=== PATIENT | male | born 1935 | race American Indian/Alaskan Native ===

== ENCOUNTER 2016-09-14 11:41 | Inpatient (IN) | payer MEDICARE, OTHER ==
[2016-09-14] MEDS ORDERED: DUONEB 0.5 MG-3 MG/3 ML SOLN IH ONE ×2 (11:52→13:38)
[2016-09-14 12:28] LABS: Basophils % (Auto) 0.6 % (0.0-1.8); Hematocrit 31.4 % (35.5-45.6); Hemoglobin 10.4 gm/dl (11.8-15.2); Mean Corpuscular HGB Conc 33 % (32-34); Mean Corpuscular Hemoglobin 31 pg (28-32); Mean Corpuscular Volume 95 fl (84-94); Platelet Count 197 K/mm3 (140-440); Red Blood Count 3.31 M/mm3 (3.65-5.03); Red Cell Distribution Width 13.7 % (13.2-15.2); White Blood Count 9.2 K/mm3 (4.5-11.0)
--- NOTE | 2016-09-14 12:33 | XRay Report ---
PORTABLE CHEST INDICATION: Difficulty breathing. COMPARISON: 10/07/2013 FINDINGS: Portable, frontal chest radiograph again demonstrates a normal heart size, post CABG changes, slight aortic knob calcifications, slightly prominent pulmonary arteries and chronic bilateral changes, including mid to lower lung calcified pleural plaques and mild scarring with chronic blunting of the left lateral costophrenic angle. Diaphragmatic calcifications may also again be noted, more so on the left. EKG leads. Demineralized bones. CONCLUSION: No acute chest process or significant interval change in various chronic findings, as detailed above. Thank you for the opportunity to participate in this patient's care.
[2016-09-14 12:51] LABS: Anion Gap 14 mmol/L; BUN/Creatinine Ratio 16.92; Blood Urea Nitrogen 22 mg/dL (9-20); Carbon Dioxide 40 mmol/L (22-30); Chloride 85.8 mmol/L (98-107); Glucose 125 mg/dL (75-100); Sodium 137 mmol/L (137-145)
[2016-09-14 13:18] LABS: Potassium 2.7 mmol/L (3.6-5.0)
[2016-09-14] MEDS ORDERED: K-DUR PO ONE (13:19)
--- NOTE | 2016-09-14 13:19 | Emergency Department Report ---
ED General Adult HPI - General Chief complaint: Dyspnea/Respdistress Stated complaint: RICARDO Time Seen by Provider: 09/14/16 13:17 Source: patient, EMS Mode of arrival: Stretcher Limitations: No Limitations - History of Present Illness Initial comments: This is a patient with end-stage COPD. He was last admitted to this facility in 2013. He is on home O2, has a home nebulizer and utilizes nocturnal C Pap or BiPAP. He arrives with a family member who provides him care at home. The patient states that his emphysema flared up this a.m. He denies chest pain he denies fever chills or cough. He is not the best historian but appears to be able to answer appropriately. In addition the family members does not contradict any of his answers. His ability to give a history is however limited. Patient was found to have chronic pleural plaques upon admission in 2013. A CT of the chest was done at that time. No neoplastic lesions were found. The patient was given nebulized albuterol and Solu-Medrol and route to the hospital per EMS. -: Gradual, hour(s) Consistency: now resolved (patient states his wheezing has improved. ) - Related Data Home Medications Medication Instructions Recorded Confirmed Last Taken Aspirin [Aspirin TAB] 325 mg PO DAILY 10/07/13 10/07/13 10/07/13 10:00 Budesoni/Formotero 160-4.5(Nf) 10.2 gm IH BID 10/07/13 10/07/13 Unknown [Symbicort 160-4.5 (Nf)] Cyanocobalamin (Vitamin B-12) 1,000 mcg PO DAILY 10/07/13 10/07/13 Unknown [Vitamin B-12] Folic Acid 1 mg PO DAILY 10/07/13 10/07/13 Unknown Furosemide [Furosemide ORAL LIQ] 40 mg PO DAILY 10/07/13 10/07/13 10/07/13 10:00 Lisinopril [Zestril TAB] 5 mg PO QDAY 10/07/13 10/07/13 Unknown Metoprolol [Lopressor TAB] 25 mg PO BID 10/07/13 10/07/13 10/06/13 21:00 Potassium Chloride 10 Meq [KCl 10 meq PO DAILY 10/07/13 10/07/13 Unknown 10Meq/100Ml] Ranitidine HCl [Ranitidine 150mg 150 mg PO BID 10/07/13 10/07/13 Unknown Cap] Rosuvastatin Calcium [Crestor] 40 mg PO QHS 10/07/13 10/07/13 Unknown Thiamine [Vitamin B-1] 100 mg PO DAILY 10/07/13 10/07/13 10/07/13 10:00 Previous Rx's Medication Instructions Recorded Last Taken Type Levofloxacin [Levaquin TAB] 500 mg PO Q24HR #7 tablet 10/09/13 Unknown Rx predniSONE [Deltasone] 20 mg PO QDAY #20 tab 10/09/13 Unknown Rx Allergies Allergy/AdvReac Type Severity Reaction Status Date / Time Penicillins Allergy Hives Verified 10/07/13 11:38 ED Review of Systems ROS: Stated complaint: RICARDO Other details as noted in HPI Comment: Unobtainable due to pts medical conditions ED Past Medical Hx - Past Medical History Previous Medical History?: Yes Hx Hypertension: Yes Hx Diabetes: Yes Hx COPD: Yes - Surgical History Additional Surgical History: Triple bypass - Social History Smoking Status: Former Smoker Substance Use Type: None - Medications Home Medications: Home Medications Medication Instructions Recorded Confirmed Last Taken Type Aspirin [Aspirin TAB] 325 mg PO DAILY 10/07/13 10/07/13 10/07/13 10:00 History Budesoni/Formotero 160-4.5(Nf) 10.2 gm IH BID 10/07/13 10/07/13 Unknown History [Symbicort 160-4.5 (Nf)] Cyanocobalamin (Vitamin B-12) 1,000 mcg PO DAILY 10/07/13 10/07/13 Unknown History [Vitamin B-12] Folic Acid 1 mg PO DAILY 10/07/13 10/07/13 Unknown History Furosemide [Furosemide ORAL LIQ] 40 mg PO DAILY 10/07/13 10/07/13 10/07/13 10: 00 History Lisinopril [Zestril TAB] 5 mg PO QDAY 10/07/13 10/07/13 Unknown History Metoprolol [Lopressor TAB] 25 mg PO BID 10/07/13 10/07/13 10/06/13 21:00 History Potassium Chloride 10 Meq [KCl 10 meq PO DAILY 10/07/13 10/07/13 Unknown History 10Meq/100Ml] Ranitidine HCl [Ranitidine 150mg 150 mg PO BID 10/07/13 10/07/13 Unknown History Cap] Rosuvastatin Calcium [Crestor] 40 mg PO QHS 10/07/13 10/07/13 Unknown History Thiamine [Vitamin B-1] 100 mg PO DAILY 10/07/13 10/07/13 10/07/13 10:00 History Levofloxacin [Levaquin TAB] 500 mg PO Q24HR #7 tablet 10/09/13 Unknown Rx predniSONE [Deltasone] 20 mg PO QDAY #20 tab 10/09/13 Unknown Rx ED Physical Exam - General Limitations: No Limitations General appearance: alert, in no apparent distress - Head Head exam: Present: atraumatic, normocephalic - Eye Eye exam: Present: normal appearance. Absent: scleral icterus - ENT ENT exam: Present: mucous membranes moist - Neck Neck exam: Present: normal inspection - Respiratory Respiratory exam: Present: wheezes, decreased breath sounds. Absent: respiratory distress - Cardiovascular Cardiovascular Exam: Present: regular rate, normal rhythm. Absent: systolic murmur, diastolic murmur, rubs, gallop - GI/Abdominal GI/Abdominal exam: Present: soft, normal bowel sounds. Absent: distended, tenderness, guarding, rebound, rigid - Rectal Rectal exam: Present: deferred - Extremities Exam Extremities exam: Present: normal inspection - Back Exam Back exam: Present: normal inspection - Neurological Exam Neurological exam: Present: alert, oriented X3, CN II-XII intact, other (some tremor/fine myoclonus occasionally noted). Absent: motor sensory deficit - Psychiatric Psychiatric exam: Present: normal mood, flat affect - Skin Skin exam: Present: warm, dry, intact, normal color. Absent: rash ED Course Vital Signs 09/14/16 09/14/16 09/14/16 11:48 11:49 11:50 Temperature Pulse Rate 102 H 100 H 93 H Pulse Rate [ Anterior Bilateral Throughout] Respiratory 19 18 18 Rate Respiratory Rate [Anterior Bilateral Throughout] Blood Pressure O2 Sat by Pulse Oximetry 09/14/16 09/14/16 09/14/16 11:51 11:52 11:54 Temperature Pulse Rate 95 H 93 H 96 H Pulse Rate [ Anterior Bilateral Throughout] Respiratory 16 19 13 Rate Respiratory Rate [Anterior Bilateral Throughout] Blood Pressure 120/56 120/56 120/56 O2 Sat by Pulse Oximetry 09/14/16 09/14/16 09/14/16 11:55 11:56 11:58 Temperature 97.5 F L Pulse Rate 97 H 97 H 89 Pulse Rate [ 88 Anterior Bilateral Throughout] Respiratory 20 17 15 Rate Respiratory 17 Rate [Anterior Bilateral Throughout] Blood Pressure 120/56 120/56 120/56 O2 Sat by Pulse 100 Oximetry 09/14/16 09/14/16 09/14/16 12:00 12:02 12:04 Temperature Pulse Rate 96 H 93 H 90 Pulse Rate [ Anterior Bilateral Throughout] Respiratory 20 19 19 Rate Respiratory Rate [Anterior Bilateral Throughout] Blood Pressure 129/60 129/60 129/60 O2 Sat by Pulse 99 98 99 Oximetry 09/14/16 09/14/16 09/14/16 12:06 12:08 12:10 Temperature Pulse Rate 103 H 87 93 H Pulse Rate [ Anterior Bilateral Throughout] Respiratory 16 17 20 Rate Respiratory Rate [Anterior Bilateral Throughout] Blood Pressure 129/60 129/60 129/60 O2 Sat by Pulse 99 98 88 Oximetry 09/14/16 09/14/16 09/14/16 12:12 12:14 12:16 Temperature Pulse Rate 101 H 110 H 98 H Pulse Rate [ Anterior Bilateral Throughout] Respiratory 23 15 20 Rate Respiratory Rate [Anterior Bilateral Throughout] Blood Pressure 129/60 129/60 129/60 O2 Sat by Pulse 93 100 73 L Oximetry 09/14/16 09/14/16 09/14/16 12:18 12:20 12:22 Temperature Pulse Rate 101 H 98 H 91 H Pulse Rate [ 96 H Anterior Bilateral Throughout] Respiratory 20 18 19 Rate Respiratory 22 Rate [Anterior Bilateral Throughout] Blood Pressure 129/60 129/60 129/60 O2 Sat by Pulse 91 90 82 L Oximetry 09/14/16 09/14/16 09/14/16 12:24 12:26 12:28 Temperature Pulse Rate 93 H 97 H 103 H Pulse Rate [ Anterior Bilateral Throughout] Respiratory 19 22 21 Rate Respiratory Rate [Anterior Bilateral Throughout] Blood Pressure 129/60 129/60 129/60 O2 Sat by Pulse 81 L 88 100 Oximetry 09/14/16 09/14/16 09/14/16 12:30 12:32 12:34 Temperature Pulse Rate 96 H 91 H 97 H Pulse Rate [ Anterior Bilateral Throughout] Respiratory 30 H 14 17 Rate Respiratory Rate [Anterior Bilateral Throughout] Blood Pressure 129/60 129/60 129/60 O2 Sat by Pulse 91 100 100 Oximetry 09/14/16 09/14/16 09/14/16 12:36 12:38 12:40 Temperature Pulse Rate 100 H 102 H 98 H Pulse Rate [ Anterior Bilateral Throughout] Respiratory 19 19 15 Rate Respiratory Rate [Anterior Bilateral Throughout] Blood Pressure 129/60 129/60 129/60 O2 Sat by Pulse 100 80 L Oximetry 09/14/16 09/14/16 09/14/16 12:42 12:44 12:46 Temperature Pulse Rate 101 H 99 H 96 H Pulse Rate [ Anterior Bilateral Throughout] Respiratory 19 20 19 Rate Respiratory Rate [Anterior Bilateral Throughout] Blood Pressure 129/60 129/60 129/60 O2 Sat by Pulse 100 Oximetry 09/14/16 09/14/16 09/14/16 12:48 12:50 12:52 Temperature Pulse Rate 87 91 H 87 Pulse Rate [ Anterior Bilateral Throughout] Respiratory 19 20 19 Rate Respiratory Rate [Anterior Bilateral Throughout] Blood Pressure 129/60 129/60 129/60 O2 Sat by Pulse 97 96 100 Oximetry 09/14/16 09/14/16 09/14/16 12:54 12:56 12:58 Temperature Pulse Rate 87 81 93 H Pulse Rate [ Anterior Bilateral Throughout] Respiratory 14 18 12 Rate Respiratory Rate [Anterior Bilateral Throughout] Blood Pressure 129/60 129/60 129/60 O2 Sat by Pulse 94 Oximetry 09/14/16 09/14/16 09/14/16 13:00 13:02 13:04 Temperature Pulse Rate 91 H 86 91 H Pulse Rate [ Anterior Bilateral Throughout] Respiratory 18 16 18 Rate Respiratory Rate [Anterior Bilateral Throughout] Blood Pressure 111/53 111/53 111/53 O2 Sat by Pulse 98 Oximetry 09/14/16 09/14/16 09/14/16 13:06 13:08 13:10 Temperature Pulse Rate 97 H 92 H 92 H Pulse Rate [ Anterior Bilateral Throughout] Respiratory 18 18 17 Rate Respiratory Rate [Anterior Bilateral Throughout] Blood Pressure 111/53 111/53 111/53 O2 Sat by Pulse 100 100 100 Oximetry 09/14/16 09/14/16 09/14/16 13:12 13:14 13:16 Temperature Pulse Rate 92 H 89 105 H Pulse Rate [ Anterior Bilateral Throughout] Respiratory 16 19 17 Rate Respiratory Rate [Anterior Bilateral Throughout] Blood Pressure 111/53 111/53 111/53 O2 Sat by Pulse 100 95 100 Oximetry 09/14/16 09/14/16 13:29 13:56 Temperature Pulse Rate Pulse Rate [ 63 Anterior Bilateral Throughout] Respiratory 20 Rate Respiratory 18 Rate [Anterior Bilateral Throughout] Blood Pressure O2 Sat by Pulse 100 Oximetry - Reevaluation(s) Reevaluation #1: An arterial blood gas showed a pH of 7.52 PCO2 of 57 PO2 111 with a bicarbonate of 47.5. This would indicate the patient does have some degree of metabolic colic alkalosis in addition to his chronic respiratory acidosis. It is a mixed picture. I think the patient does have some "contraction alkalosis". He was given IV fluids. 09/14/16 14:16 Reevaluation #2: The patient was discussed with the hospitalist, Dr. Barton. He requested I place bridging orders. The patient will be admitted to telemetry. IV fluids. Supplemental potassium. I've advised Dr. Barton that the patient needs CPap or BiPAP at night. I will enter another dose of potassium chloride by mouth. 09/14/16 14:19 ED Medical Decision Making - Lab Data Result diagrams: 09/14/16 12:17 09/14/16 12:17 Laboratory Results - last 24 hr 09/14/16 09/14/16 12:17 12:17 WBC 9.2 RBC 3.31 L Hgb 10.4 L Hct 31.4 L MCV 95 H MCH 31 MCHC 33 RDW 13.7 Plt Count 197 Lymph % (Auto) 16.9 [place] % (Auto) 11.4 H Eos % (Auto) 5.0 H Baso % (Auto) 0.6 Lymph # 1.6 [place] # 1.0 H Eos # 0.5 H Baso # 0.1 Seg Neutrophils % 66.1 Seg Neutrophils # 6.1 Sodium 137 Potassium 2.7 L* Chloride 85.8 L Carbon Dioxide 40 H Anion Gap 14 BUN 22 H Creatinine 1.3 Estimated GFR > 60 BUN/Creatinine Ratio 16.92 Glucose 125 H Calcium 9.0 Troponin T < 0.010 - EKG Data -: EKG Interpreted by Me EKG shows normal: sinus rhythm - EKG Data Interpretation: other (pulmonary disease pattern and nonspecific ST-T wave changes. Right atrial and atrial ectopy.) - Radiology Data Radiology results: report reviewed interpreted by me: Chest x-ray shows no interval change with chronic pulmonary plaques and COPD noted. Critical Care Time: Yes Critical care time in (mins) excluding proc time.: 40 Critical care attestation.: If time is entered above; I have spent that time in minutes in the direct care of this critically ill patient, excluding procedure time. ED Disposition Clinical Impression: Chronic hypoxemic respiratory failure, Metabolic alkalosis, Hypokalemia Disposition: OP ADMITTED IP TO THIS HOSP Is pt being admited?: Yes Does the pt Need Aspirin: Yes Condition: Stable Referrals: PRIMARY CARE,MD [Primary Care Provider] - 3-5 Days Time of Disposition: 14:18
--- NOTE | 2016-09-14 13:34 | Admit Criteria Form ---
Admission Criteria Documentation: PULMONARY DISEASE GRG Clinical Indications for Admission to Inpatient Care ( Place 'X' for any and all applicable criteria): Hospital admission is needed for appropriate care of the patient because of ANY ONE of the following(1): [ ]I. Impending or actual respiratory arrest ( Use Respiratory Failure Criteria for severe respiratory disease and long-term mechanical ventilation patients) (4) [ ]II. Severe airflow or ventilation abnormalities (not responsive to emergency and observation care treatment as appropriate) as indicated by ANY ONE of the following(5)(6)(7)(8) : [ ]a) PCO2 > 42 mm Hg (5.6 kPa) and pH < 7.35 (new) [ ]b) Documented PCO2 increase > 5 mm Hg (0.7 kPa) from disease baseline [ ]c) Airflow measurements[A] < 60% of previous best or predicted ( e.g., PEF <300 L/minute) despite intensive emergent treatment[B] [ ]d) Required respiratory treatments that are performable only in acute inpatient setting [ ]III. Severe respiratory findings (not responsive to emergency and observation care treatment as appropriate) including ANY ONE of the following(5)(8)(9): [ ]a) Respiratory distress as indicated by ALL of the following(5)(10): [ ]i) Patient with ANY ONE of the following: [ ]1) Dyspnea (difficulty breathing) [ ]2) Abnormal breathing pattern (eg, chest retractions) [ ]3) Tachypnea [ ]4) Other evidence of difficulty breathing [ ]ii) Evidence of respiratory compromise indicated by ANY ONE of the following: [ ]1) Hypoxemia [ ]2) Altered mental status [ ]3) Other evidence of respiratory compromise (eg, pulmonary edema on chest x-ray) [ ]b) Stridor [ ]c) Gross hemoptysis(11) [ ]d) Acute cyanosis [ ]IV. High-risk pulmonary infection as indicated by ANY ONE of the following( 19)(20)(21)(22): [ ]a) Temperature less than 95 degrees F(35 degrees C) or greater than 103.1 degrees F(39.5 degrees C) [ ]b) Hemodynamic instability that remains after emergency or observation level care (as appropriate) [ ]c) Immunocompromised patient (eg, AIDS, post transplant, neutropenic) [ ]d) History of severe COPD [ ]e) History of severely symptomatic congestive heart failure [ ]f) Other high-risk comorbidity (eg, poorly controlled diabetes, cirrhosis, chronic renal insufficiency) [ ]g) Hypoxemia (new) [ ]h) Outpatient, observation, or recovery facility therapy has failed, is not appropriate, or is not feasible [ ]V. Severe atelectasis or lung collapse(15)(16) [ ]. Tuberculosis requiring inpatient treatment as indicated by ANY ONE of the following(17)(18): [ ]a) New positive acid-fast bacilli sputum smear [ ]b) Positive acid-fast bacilli smear (under current treatment), with ANY ONE of the following: [ ]i) Unexposed household contacts [ ]ii) Infants or immunosuppressed household contacts [ ]iii) Patient unable or unwilling to avoid exposing others [ ]iv) Severe immunocompromised patient (eg, AIDS, post transplant, neutropenic) [ ]VII. Empyema or lung abscess(13)(14) [ ]VIII. Severe pulmonary arterial hypertension or pulmonary vascular disease requiring inpatient care indicated by ANY ONE of the following(24)(25): [ ]a) Initiation or change of vasodilators (IV, subcutaneous, or inhaled) or other vasoactive medications needed [ ]b) IV anticoagulation needed (eg, immediate anticoagulation necessary, alternatives not appropriate) [ ]c) Arterial or pulmonary artery catheter monitoring needed due to infusion or other treatment [ ]IX. Chronic lung disease with severe deterioration (not responsive to emergency and observation care treatment as appropriate) as indicated by ANY ONE of the following (6)(12): [ ]a) SaO2 5% below baseline in patient with chronic hypoxemia [ ]b) New requirement for supplemental oxygen to keep SaO2 at baseline or acceptable level [ ]c) Required supplemental oxygen performable only in acute inpatient setting [ ]d) Severe airflow or ventilation abnormalities [ ]e) Rapid rate of exacerbation onset [ ]f) Previously mobile patient unable to walk between rooms [ ]g) Inability to eat or sleep due to dyspnea [ ]h) Altered mental status [ ]X. Cystic fibrosis with severe deterioration as indicated by ANY ONE of the following(26)(27): [ ]a) Severe exacerbation that does not respond to intensified home therapy [ ]b) Pneumonia [ ]c) Hemoptysis [ ]d) Atelectasis [ ]e) Pneumothorax [ ]f) Respiratory failure [ ]g) Severe exacerbation with patient unable to perform prescribed treatments at home [ ]XI. Severe right heart failure as indicated by ANY ONE of the following(24) (25): [ ]a) Increasing organ failure (eg, liver congestion with significant and worsening or new elevation of transaminases) [ ]b) Anasarca [ ]c) Angina that requires inpatient care (eg, not treatable in emergency or observation level of care) [ ]d) Respiratory distress [ ]e) Syncope [ ]f) SBP < 90 mm Hg (new) [ ]XII. Injury requiring inpatient care (medical) as indicated by ANY ONE of the following(28): [ ]a) Significant inhalation injury (eg, smoke inhalation, other toxic inhalation) (29)(30)(31) [ ]b) Airway obstruction that remains or is unstable after emergency or observation level care(32) [ ]c) Severe pain requiring acute inpatient management [ ]d) Lung contusion [ ]e) Bronchial tree injury [ ]f) Air or fat emboli(33) [ ]g) Other injury not treatable in emergency or observation level care (eg, hemothorax) (34) [ ]XIII. Pulmonary hemorrhage or significant hemoptysis(11)(35)(36) [ ]XIV. Inpatient palliative care needed[C](37)(38)(39)(40) [ ]XV. Complications of lung transplant (eg, rejection, failure, respiratory infection) (23) [ ]XVI. Pulmonary Disease and ANY ONE of the following: [ ]a) General Admission Criteria [ ]b) Pediatric General Admission Criteria The original [facility] content created by [facility] has been revised. The portions of the content which have been revised are identified through the use of italic text or in bold, and [facility] has neither reviewed nor approved the modified material. All other unmodified content is copyright [facility]. Please see references footnoted in the original [facility] edition 2016
[2016-09-14] MEDS ORDERED: NACL 0.9% 1000 ML 1,000 ML IV ONE (13:38)
[2016-09-14] MEDS ORDERED: BABY ASPIRIN PO ONE (14:20)
[2016-09-14 14:23] LABS: ISTAT Base Excess 25; ISTAT HCO3 47.4; ISTAT PCO2 57.9 (35-45); ISTAT PH 7.521 (7.35-7.45); ISTAT PO2 111 (80-105); ISTAT SO2 99; ISTAT TCO2 49
[2016-09-14] MEDS ORDERED: TRIPLE ANTIBIOTIC TP ONE (14:24)
[2016-09-14] MEDS: DUONEB 0.5 MG-3 MG/3 ML SOLN IH SCH ×2 (17:35→20:16)
[2016-09-14] MEDS ORDERED: PROVENTIL IH PRN (22:32)
--- NOTE | 2016-09-15 01:58 | Event Note ---
Date: 09/14/16 See H/p for 09/14/16 in reports
[2016-09-15] MEDS ORDERED: FORMOTEROL IH SCH (02:00)
[2016-09-15] MEDS ORDERED: BUDESONIDE IH SCH (02:00)
[2016-09-15] MEDS ORDERED: DUONEB 0.5 MG-3 MG/3 ML SOLN IH SCH (02:00)
[2016-09-15] MEDS ORDERED: DUONEB 0.5 MG-3 MG/3 ML SOLN IH PRN (02:01)
[2016-09-15] MEDS ORDERED: K-DUR PO ONE (02:19)
[2016-09-15] MEDS ORDERED: PROVENTIL IH PRN (02:29)
[2016-09-15 02:41] LABS: Basophils % (Auto) 0.3 % (0.0-1.8); Eosinophils % (Auto) 3.5 % (0.0-4.3); Hemoglobin 9.2 gm/dl (11.8-15.2); Mean Corpuscular HGB Conc 33 % (32-34); Mean Corpuscular Hemoglobin 31 pg (28-32); Mean Corpuscular Volume 94 fl (84-94); Platelet Count 177 K/mm3 (140-440); Red Blood Count 2.98 M/mm3 (3.65-5.03); Red Cell Distribution Width 13.4 % (13.2-15.2); White Blood Count 8.3 K/mm3 (4.5-11.0)
[2016-09-15] MEDS: DUONEB 0.5 MG-3 MG/3 ML SOLN IH SCH ×3 (02:48→13:39)
[2016-09-15] MEDS: KCL 10MEQ/100ML 10 MEQ/100 ML BAG IV SCH ×4 (03:04→10:09)
--- NOTE | 2016-09-15 04:07 | History and Physical Report ---
CHIEF COMPLAINT: Increasing respiratory distress for last 2 days. HISTORY OF PRESENT ILLNESS: An 81-year-old male with end-stage COPD, comes in for increasing shortness of breath. The patient is on home oxygen and CPAP machine. At this point, ____. The patient has been having increasing shortness of breath more so since a.m. today. Cough productive of yellow sputum. No fever, no chills. Very short of breath. The last admission for the patient was in 2013 ____. PAST MEDICAL HISTORY: As mentioned: 1. COPD. 2. Diabetes. 3. Hypertension. 4. Gastroesophageal reflux disease. CURRENT MEDICATIONS: 1. Aspirin 325 mg daily. 2. Symbicort 160/4.5 b.i.d. 3. Folic acid 1 mg p.o. daily. 4. Lasix 40 mg p.o. daily. 5. Lisinopril 5 mg p.o. daily. 6. Metoprolol 25 mg p.o. b.i.d. 7. Potassium 10 mEq p.o. daily. 8. Ranitidine 150 mg twice a day. 9. ____ 40 mg p.o. at bedtime. 10. Thiamine B1 100 mg p.o. daily. ALLERGIES: Previous allergy to PENICILLIN. PAST SURGICAL HISTORY: Triple bypass surgery. SOCIAL HISTORY: Former ____. FAMILY HISTORY: Significant for hypertension. REVIEW OF SYSTEMS: Significant for increasing shortness of breath and wheezing. Otherwise, 14-point review of systems essentially negative. All systems reviewed. PHYSICAL EXAMINATION: GENERAL: Elderly male, cooperative during examination, well-developed, well-nourished. VITAL SIGNS: Temperature is 98.5 degrees, pulse is 102, respiratory rate is 19. Blood pressure is 120/56. HEENT: Unremarkable. Pupils equal and reactive. NECK: Supple, no lymphadenopathy, no thyromegaly. LUNGS: Bilateral inspiratory and expiratory rhonchi present. CARDIOVASCULAR: S1, S2 heard. No gallop, no murmur, no rub. Apical impulse in left fifth intercostal space and midclavicular line. ABDOMEN: Soft and benign. No hepatosplenomegaly. No guarding, no rigidity. Hernial orifices are normal. EXTREMITIES: Good pedal pulses. No pedal edema. CENTRAL NERVOUS SYSTEM: Alert and oriented x 4, nonfocal exam. SKIN: Normal. LABORATORY DATA: Significant for a white count is 9200, H and H is 10.4 and 31.4, platelet count is 197,000. ABG significant for pH of 7.5, pCO2 of 57.9, pO2 111. Bicarbonate of 47.4. Electrolytes were significant for potassium of 2.7, glucose of 155, BUN and creatinine of 22 and 1.3. Chest x-ray shows no infiltrates, consistent with COPD. Chronic pulmonary process. EKG shows nonspecific ST-T wave changes, and right ____. Sinus rhythm. ASSESSMENT AND PLAN: 1. Acute respiratory failure, secondary to chronic obstructive pulmonary disease with hypercarbia. The patient started on DuoNebs and levofloxacin and Solu-Medrol. Continue same. 2. Hypokalemia, severe, supplemented. 3. Hypertension. Continue lisinopril 5 mg daily. Metoprolol 25 mg twice a day. 4. Hyperlipidemia. Continue Crestor 40 mg p.o. daily, substitute Statin. 5. Chronic obstructive pulmonary disease. Continue Symbicort 160/4.5 daily. 6. Congestive heart failure. Continue Lasix 40 mg p.o. daily and potassium 10 mEq p.o. daily. 7. Deep venous thrombosis prophylaxis, Lovenox 40 mg subcutaneous daily. [facility]# [id number]
[2016-09-15] MEDS ORDERED: BROVANA NEBU IH SCH (08:00)
[2016-09-15] MEDS ORDERED: PULMICORT IH SCH (08:00)
[2016-09-15 08:25] LABS: Anion Gap 13 mmol/L; BUN/Creatinine Ratio 13.63; Blood Urea Nitrogen 15 mg/dL (9-20); Carbon Dioxide 36 mmol/L (22-30); Glucose 119 mg/dL (75-100); Potassium 3.9 mmol/L (3.6-5.0); Sodium 136 mmol/L (137-145)
[2016-09-15] MEDS ORDERED: POTASSIUM CHLORIDE 10 MEQ PO SCH (10:00)
[2016-09-15] MEDS ORDERED: NON-FORMULARY (Ranitidine Hcl [Ranitidine 150mg Cap] 150 MG) PO SCH (10:00)
[2016-09-15] MEDS ORDERED: ASPIRIN PO SCH (10:00)
[2016-09-15] MEDS ORDERED: K-DUR PO SCH ×3 (10:00)
[2016-09-15] MEDS ORDERED: FUROSEMIDE 40 MG PO SCH (10:00)
[2016-09-15] MEDS ORDERED: LEVAQUIN 750MG/150ML 750 MG/150 ML BAG IV SCH (10:00)
[2016-09-15] MEDS ORDERED: VITAMIN B-1 PO SCH (10:00)
[2016-09-15] MEDS ORDERED: ZESTRIL PO SCH (10:00)
[2016-09-15] MEDS ORDERED: LOVENOX SUB-Q SCH ×2 (10:00)
[2016-09-15] MEDS ORDERED: LASIX PO SCH (10:00)
[2016-09-15] MEDS ORDERED: PEPCID PO SCH (10:00)
[2016-09-15] MEDS ORDERED: LOPRESSOR PO SCH (10:00)
[2016-09-15] MEDS ORDERED: LEVAQUIN 750MG/150ML 150 ML IV SCH (10:00)
[2016-09-15] MEDS ORDERED: DELTASONE PO SCH (10:00)
--- NOTE | 2016-09-15 10:42 | Progress Note ---
Hospitalist Physical - Constitutional Vitals: Temp Pulse Resp BP Pulse Ox 98 F 95 H 18 120/69 98 09/15/16 06:50 09/15/16 10:35 09/15/16 10:35 09/15/16 06:50 09/15/16 07:40 Results - Labs CBC & Chem 7: 09/15/16 02:20 09/15/16 07:26 Labs: Laboratory Last Values WBC 8.3 K/mm3 (4.5-11.0) 09/15/16 02:20 RBC 2.98 M/mm3 (3.65-5.03) L 09/15/16 02:20 Hgb 9.2 gm/dl (11.8-15.2) L 09/15/16 02:20 Hct 28.0 % (35.5-45.6) L 09/15/16 02:20 MCV 94 fl (84-94) 09/15/16 02:20 MCH 31 pg (28-32) 09/15/16 02:20 MCHC 33 % (32-34) 09/15/16 02:20 RDW 13.4 % (13.2-15.2) 09/15/16 02:20 Plt Count 177 K/mm3 (140-440) 09/15/16 02:20 Lymph % (Auto) 9.4 % (13.4-35.0) L 09/15/16 02:20 [place] % (Auto) 15.6 % (0.0-7.3) H 09/15/16 02:20 Eos % (Auto) 3.5 % (0.0-4.3) 09/15/16 02:20 Baso % (Auto) 0.3 % (0.0-1.8) 09/15/16 02:20 Lymph # 0.8 K/mm3 (1.2-5.4) L 09/15/16 02:20 [place] # 1.3 K/mm3 (0.0-0.8) H 09/15/16 02:20 Eos # 0.3 K/mm3 (0.0-0.4) 09/15/16 02:20 Baso # 0.0 K/mm3 (0.0-0.1) 09/15/16 02:20 Seg Neutrophils % 71.2 % (40.0-70.0) H 09/15/16 02:20 Seg Neutrophils # 5.9 K/mm3 (1.8-7.7) 09/15/16 02:20 POC ABG pH 7.521 (7.35-7.45) H 09/14/16 13:57 POC ABG pCO2 57.9 (35-45) H 09/14/16 13:57 POC ABG pO2 111 (80-105) H 09/14/16 13:57 POC ABG HCO3 47.4 09/14/16 13:57 POC ABG Total CO2 49 09/14/16 13:57 POC ABG O2 Sat 99 09/14/16 13:57 POC ABG Base Excess 25 09/14/16 13:57 FiO2 3.5 % 09/14/16 13:57 Sodium 136 mmol/L (137-145) L 09/15/16 07:26 Potassium 3.9 mmol/L (3.6-5.0) D 09/15/16 07:26 Chloride 91.0 mmol/L (98-107) L 09/15/16 07:26 Carbon Dioxide 36 mmol/L (22-30) H 09/15/16 07:26 Anion Gap 13 mmol/L 09/15/16 07:26 BUN 15 mg/dL (9-20) 09/15/16 07:26 Creatinine 1.1 mg/dL (0.8-1.5) 09/15/16 07:26 Estimated GFR > 60 ml/min 09/15/16 07:26 BUN/Creatinine Ratio 13.63 % 09/15/16 07:26 Glucose 119 mg/dL (75-100) H 09/15/16 07:26 POC Glucose 147 (70-105) H 09/15/16 08:08 Calcium 9.0 mg/dL (8.4-10.2) 09/15/16 07:26 Troponin T < 0.010 ng/mL (0.00-0.029) 09/14/16 12:17
[2016-09-15 12:57] VITALS: BP 140/71
[2016-09-15] MEDS ORDERED: NON-FORMULARY (Rosuvastatin Calcium [Crestor] 40 MG) PO SCH (22:00)
--- NOTE | 2016-09-16 18:57 | Discharge Summary ---
Providers - Providers Date of Admission: 09/14/16 14:21 Attending physician: ANNE FONTANA Primary care physician: ITALIA NOVA MD Hospitalization Condition: Stable Disposition: LEFT AGAINST MEDICAL ADVICE Exam - Constitutional Vitals: Temp Pulse Resp BP Pulse Ox 98.2 F 102 H 20 140/71 95 09/15/16 08:00 09/15/16 13:42 09/15/16 13:42 09/15/16 08:00 09/15/16 10:00 Plan Follow up with: PRIMARY MD ROHINI [Primary Care Provider] - 3-5 Days
== END 2016-09-15 17:04 | disposition left against medical advice (07) | DRG 189 ==
LOC: ED 11:41 → 4A 14:21
PROVIDERS: ADMIT Internal Medicine; ATTEND Internal Medicine
PROC: 4A033R1 Measurement of Arterial Saturation, Peripheral, Percutaneous Approach (ICD-10-PCS; principal; 2016-09-14)
DX: J96.21 Acute and chronic respiratory failure with hypoxia (principal); E87.3 Alkalosis; E87.6 Hypokalemia; E11.9 Type 2 diabetes mellitus without complications; J44.9 Chronic obstructive pulmonary disease, unspecified; K21.9 Gastro-esophageal reflux disease without esophagitis; E78.5 Hyperlipidemia, unspecified; I11.0 Hypertensive heart disease with heart failure; I50.9 Heart failure, unspecified; Z99.81 Dependence on supplemental oxygen; Z88.0 Allergy status to penicillin; Z82.49 Family history of ischemic heart disease and other diseases of the circulatory system
CPT/HCPCS: 36415; 71010; 80048; 82803; 82962; 84484; 85025; 93005; 93010; 94640; 94760; 96360; 96361; A6250; J1650; J1956; J2930; J3480; J7030

== ENCOUNTER 2017-03-09 09:54 | Emergency (ER) | payer MEDICARE ==
--- NOTE | 2017-03-09 10:23 | Emergency Department Report ---
ED CPR HPI - General Chief Complaint: Cardiac Arrest/CPR Stated Complaint: CARDIAC ARREST Time Seen by Provider: 03/09/17 10:23 Source: EMS Mode of arrival: Stretcher Limitations: Other - History of Present Illness Initial Comments: Patient is an 81-year-old male past medical history of congestive heart failure who presents status post cardiac arrest. History is limited due to patient's acuity of condition. Patient was found unresponsive by daughter and EMS was called patient was in fine V. fib per EMS. A Fabian tube was placed and he was bagged. Patient's total down time has been 30 minutes. - Related Data Home Medications Medication Instructions Recorded Confirmed Last Taken Aspirin [Aspirin TAB] 81 mg PO DAILY 10/07/13 09/14/16 09/14/16 Budesoni/Formotero 160-4.5(Nf) 10.2 gm IH BID 10/07/13 09/14/16 Unknown [Symbicort 160-4.5 (Nf)] Cyanocobalamin (Vitamin B-12) 1,000 mcg PO DAILY 10/07/13 09/14/16 Unknown [Vitamin B-12] Folic Acid 1 mg PO DAILY 10/07/13 09/14/16 Unknown Furosemide [Furosemide ORAL LIQ] 40 mg PO DAILY 10/07/13 09/14/16 10/07/13 10:00 Lisinopril [Zestril TAB] 5 mg PO QDAY 10/07/13 09/14/16 Unknown Metoprolol [Lopressor TAB] 25 mg PO BID 10/07/13 09/14/16 10/06/13 21:00 Potassium Chloride 10 Meq [KCl 10 meq PO DAILY 10/07/13 09/14/16 Unknown 10Meq/100Ml] Ranitidine HCl [Ranitidine 150mg 150 mg PO BID 10/07/13 09/14/16 Unknown Cap] Rosuvastatin Calcium [Crestor] 40 mg PO QHS 10/07/13 09/14/16 Unknown Thiamine [Vitamin B-1] 100 mg PO DAILY 10/07/13 09/14/16 10/07/13 10:00 Previous Rx's Medication Instructions Recorded Last Taken Type predniSONE [Deltasone] 20 mg PO QDAY #20 tab 10/09/13 Unknown Rx Allergies Allergy/AdvReac Type Severity Reaction Status Date / Time Penicillins Allergy Hives Verified 10/07/13 11:38 ED Review of Systems ROS: Stated complaint: CARDIAC ARREST Other details as noted in HPI Comment: Unobtainable due to pts medical conditions (acuity of condition) ED Past Medical Hx - Past Medical History Hx Hypertension: Yes Hx Diabetes: Yes Hx COPD: Yes - Surgical History Additional Surgical History: Triple bypass - Social History Smoking Status: Unknown if ever smoked - Medications Home Medications: Home Medications Medication Instructions Recorded Confirmed Last Taken Type Aspirin [Aspirin TAB] 81 mg PO DAILY 10/07/13 09/14/16 09/14/16 History Budesoni/Formotero 160-4.5(Nf) 10.2 gm IH BID 10/07/13 09/14/16 Unknown History [Symbicort 160-4.5 (Nf)] Cyanocobalamin (Vitamin B-12) 1,000 mcg PO DAILY 10/07/13 09/14/16 Unknown History [Vitamin B-12] Folic Acid 1 mg PO DAILY 10/07/13 09/14/16 Unknown History Furosemide [Furosemide ORAL LIQ] 40 mg PO DAILY 10/07/13 09/14/16 10/07/13 10: 00 History Lisinopril [Zestril TAB] 5 mg PO QDAY 10/07/13 09/14/16 Unknown History Metoprolol [Lopressor TAB] 25 mg PO BID 10/07/13 09/14/16 10/06/13 21:00 History Potassium Chloride 10 Meq [KCl 10 meq PO DAILY 10/07/13 09/14/16 Unknown History 10Meq/100Ml] Ranitidine HCl [Ranitidine 150mg 150 mg PO BID 10/07/13 09/14/16 Unknown History Cap] Rosuvastatin Calcium [Crestor] 40 mg PO QHS 10/07/13 09/14/16 Unknown History Thiamine [Vitamin B-1] 100 mg PO DAILY 10/07/13 09/14/16 10/07/13 10:00 History predniSONE [Deltasone] 20 mg PO QDAY #20 tab 10/09/13 09/14/16 Unknown Rx ED Physical Exam - General Limitations: Physical Limitation (acuity of condition), Other - Head Head exam: Present: atraumatic - Eye Eye exam: Present: other (fixed and dilated) - Respiratory Respiratory exam: Present: other (no spontaneous respirations) - Cardiovascular Cardiovascular Exam: Present: other (no spontaneous heartbeat) - GI/Abdominal GI/Abdominal exam: Present: soft - Skin Skin exam: Present: other (cool) ED Course - Reevaluation(s) Reevaluation #1: 03/09/17 10:30 Time of was called on patient at 10:00 ED Medical Decision Making - Medical Decision Making Chief medical diagnosis: Cardiac arrest Differential diagnosis: Ventricular fibrillation, congestive heart The code sheet for documentation of what patient received. Patient received CPR for about 3 minutes. He got 1 amp of epinephrine and a shock of 200 J. Patient never regained pulses due to patient being found down for so long and have never regaining pulses and all of his comorbidities and age. Time of was called at 10:00. Discussed Mr. Saldana with his daughter. Critical care attestation.: If time is entered above; I have spent that time in minutes in the direct care of this critically ill patient, excluding procedure time. ED Disposition Clinical Impression: Cardiac arrest Disposition: DC-20 Is pt being admited?: No Does the pt Need Aspirin: No Condition: Undetermined Referrals: PRIMARY CARE, [Primary Care Provider] - 3-5 Days
[2017-03-09] MEDS ORDERED: SODIUM BICARBONATE IV ONE (18:38)
[2017-03-09] MEDS ORDERED: ATROPINE 0.1% (CARDIAC) ONE (18:38)
== END 2017-03-09 13:09 ==
LOC: ED 09:54
DX: I46.9 Cardiac arrest, cause unspecified (principal); I50.9 Heart failure, unspecified; I10 Essential (primary) hypertension; E11.9 Type 2 diabetes mellitus without complications; J44.9 Chronic obstructive pulmonary disease, unspecified
CPT/HCPCS: 92950; 99285; J0461